=== PATIENT | female | born 1950 | race Asian ===

== ENCOUNTER 2018-08-03 13:13 | Emergency (ER) | payer MEDICARE, OTHER ==
[~2018-08-03] VITALS: Ht 152.4 cm; Wt 73.5 kg
[~2018-08-03 13:13] MED LIST: ATENOLOL50 MG PO; LEXAPRO10 MG PO; METFORMIN HCL500 M2 PO; NAPROXEN250 MG PO
--- NOTE | 2018-08-03 15:05 | Diagnostic Imaging Report ---
Exams: Head and cervical spine CTs without IV contrast History: Trauma, fall, hit right side of head Comparison studies: None Technique: Axial images were obtained from the brain and cervical spine. Coronal and sagittal images reconstructed from the axial data. Dose modulation, iterative reconstruction, and/or weight based adjustment of the mA/kV was utilized to reduce the radiation dose to as low as reasonably achievable. Radiation dose: Total DLP: 969 (head CT) +184 (cervical spine CT). MGy*cm. Estimated effective dose: DLP x 0.015 Intravenous contrast: None Findings: Head CT: Scalp: Right frontal scalp laceration without associated retained hyperdense foreign body. Bones: No fractures, blastic or lytic lesions. Extra-axial spaces: No masses. No fluid collections. Brain sulci: Mildly prominent. Ventricles: Dilatation. No hydrocephalus. Parenchyma: No mass, acute hemorrhage or acute or chronic cortical vascular insults. A few scattered and mildly confluent bifrontal hypodensities in the supratentorial white matter are nonspecific but most compatible with chronic microvascular ischemic changes. Small lacunar infarct in the genu body junction of the corpus callosum on the left. Sellar/suprasellar region: No abnormalities. Craniocervical junction: The foramen magnum is patent. No Chiari one malformation. Cervical spine CT: Fractures: None. Soft tissues: No gross acute abnormalities. Atlantoaxial articulation: Intact. Alignment: Normal lordosis. No subluxations. Cervicomedullary junction: No abnormalities. The foramen magnum is patent. Vertebrae: No infection or neoplasm. Degenerative changes: Mildly degenerated C5-C6 disc with disc osteophyte complex which results in only mild canal stenosis. Multilevel facet arthrosis mild foraminal stenosis at C5-C6 (left greater than right) due to uncovertebral and facet arthrosis Incidental findings: Atherosclerotic calcifications in the carotid siphons and left intradural vertebral artery. Carious left first molar with periapical lucency. Calcified 8 mm right thyroid lobe nodule. IMPRESSION: Head CT: 1. Right frontal scalp laceration without associated retained hyperdense foreign body or underlying fracture 2. No acute intracranial abnormalities. 3. Mild generalized volume loss. 4. Moderate supratentorial chronic microvascular ischemic changes with chronic lacunar infarct in the corpus callosum. Cervical spine CT: 1. No cervical spine fracture or subluxation. 2. Degenerative changes as described. 3. Please note, cannot adequately evaluate ligament, spinal cord and or vascular abnormalities on the basis of this examination. Signed by: Dr. Lc Currie M.D. on 08/03/2018 3:01 PM
[2018-08-03 15:16] VITALS: BP 122/62
== END 2018-08-03 15:19 | disposition home or self-care (01) ==
LOC: FSED 13:13
DX: S01.81XA Laceration without foreign body of other part of head, initial encounter (principal); W01.198A Fall on same level from slipping, tripping and stumbling with subsequent striking against other object, initial encounter; Y93.01 Activity, walking, marching and hiking; Y92.008 Other place in unspecified non-institutional (private) residence as the place of occurrence of the external cause; I10 Essential (primary) hypertension; E11.9 Type 2 diabetes mellitus without complications
CPT/HCPCS: 70450; 72125; 99283